=== PATIENT | female | born 1995 | race Caucasian/White ===

== ENCOUNTER 2019-02-06 19:34 | Emergency (ER) | payer OTHER ==
[2019-02-06] MEDS ORDERED: Ketorolac Tromethamine 30 MG/ML VIAL ONE (20:08)
--- NOTE | 2019-02-06 20:53 | RAD ---
3 views thoracic spine. history: 23-year-old with history of back injury and pain. AP, lateral and swimmer's view thoracic spine obtained. No evidence of acute fractures, subluxations or bony lesion seen. IMPRESSION: Normal 3 views thoracic spine.
== END 2019-02-06 21:04 | disposition home or self-care (01) ==
LOC: ERS 19:34
DX: S29.012A Strain of muscle and tendon of back wall of thorax, initial encounter (principal); X50.1XXA Overexertion from prolonged static or awkward postures, initial encounter
CPT/HCPCS: 72072; 96372; J1885